=== PATIENT | female | born 1945 | race Caucasian/White ===

== ENCOUNTER → 2017-11-06 | Outpatient (CLI) | payer MEDICARE, OTHER ==
[~2017-11-06] MED LIST: CALC1TAB16 PO; ESTR1 PO; LEVO.05 PO; OCUVTAB4 PO; VAGI10TA VAGINAL; VITA1000 PO; [UNRECOGNIZED DRUG - CODE] EACH EYE
[2017-11-06 14:18] LABS: HEMATOCRIT 41.7 % (35.0-46.0); HEMOGLOBIN 14.1 GM/DL (11.6-15.3); MEAN CELL VOLUME 88.2 FL (80.0-100.0); MEAN CORPUSCULAR HEMOGLOBIN 29.9 PG (27.0-34.0); MEAN CORPUSCULAR HGB CONC 33.9 % (32.0-36.0); MEAN PLATELET VOLUME 8.2 FL (7.0-11.0); PLATELET COUNT 288 TH/MM3 (150-450); RED BLOOD COUNT 4.72 MIL/MM3 (4.00-5.30); RED CELL DISTRIBUTION WIDTH 13.7 % (11.6-17.2); WHITE BLOOD COUNT 6.4 TH/MM3 (4.0-11.0)
[2017-11-06 14:25] LABS: BILIRUBIN, URINE NEG (NEG); BLOOD, URINE NEG (NEG); GLUCOSE,URINE NEG (NEG); KETONE, URINE NEG (NEG); MUCUS URINE FEW /lpf (OCC); NITRITE,URINE NEG (NEG); PH, URINE 5.5 (5.0-8.5); SQUAMOUS EPITHELIAL CELL URINE 2 /hpf (0-5); URINE COLOR YELLOW (YELLW/STRAW); URINE LEUKOCYTE ESTERASE NEG (NEG)
--- NOTE | 2017-11-07 14:43 | EKG ---
Date Performed: 11/06/2017 Time Performed: 13:54:54 PTAGE: 72 years EKG: Sinus rhythm NORMAL ECG NO PREVIOUS TRACING DOCTOR: Nacho Dale Interpretating Date/Time 11/07/2017 14:41:37
--- NOTE | 2017-11-08 15:37 | MH ---
cc: Justin Noble MD DATE OF ADMISSION: 11/06/2017 ADMITTING DIAGNOSIS: Enlarging cyst of vulva. HISTORY OF PRESENT ILLNESS: The patient is a 72-year-old white female, para 1-0-0-1 with an over 1-year history of increasing size of a vulvar cyst, is not admitted for removal. PAST MEDICAL HISTORY/PREVIOUS SURGERY: In 1965, she had sinus polyps, a D and C in 1976, laparoscopic tubal in 1979, D and C in 1989, RUDY-BSO in 1992. ALLERGIES: NONE. MEDICATIONS: Estrace, Vagifem, Synthroid, and vitamins. TRANSFUSIONS: None. OBSTETRICAL HISTORY: One vaginal delivery. SOCIAL HISTORY: Retired teacher. Alcohol, tobacco, and drugs are none. FAMILY HISTORY: Noncontributory. PHYSICAL EXAMINATION: GENERAL: She is a well-nourished, well-developed white female. VITAL SIGNS: Stable. HEENT: Normal. CHEST: Clear. HEART: Regular rate. BREASTS: Symmetrical. ABDOMEN: Benign. PELVIC: The vulva shows a 1.5 cm sebaceous cyst, right vulva, periclitoral. Vagina is normal. Cervix, uterus, adnexa absent. No mass or pain. ASSESSMENT: As above. She is now admitted for a partial vulvectomy, simple. While in the office, the procedure, the risks and benefits and complications including infection, injury, bleeding, recurrent symptoms. Patient would like to proceed. Justin Noble MD JAW/TI , 03:25 PM , 03:36 PM
== END ==
LOC: CPRE 13:29
PROVIDERS: ATTEND Obstetrics & Gynecology
DX: Z01.812 Encounter for preprocedural laboratory examination (principal); Z01.810 Encounter for preprocedural cardiovascular examination; N90.89 Other specified noninflammatory disorders of vulva and perineum
CPT/HCPCS: 36415; 81001; 85027; 93005

== ENCOUNTER → 2017-11-09 | Day surgery (SDC) | payer MEDICARE, OTHER ==
[~2017-11-09] MED LIST changes: +*ONDANSETRON 4 MG VIAL PERIprocedural Use ONLY ONE; +ACETAMINOPHEN 1000 MG/100 ML 100 ML IV SCH; +BACITRACIN TOP OINT 15 GM TUBE ONE; +CHLORHEXIDINE GLUCONATE 2 % 1 PACK (2 CLOTHS) TOPICAL PRN; +DEXAMETHASONE SOD PHOS 4 MG/ML VIAL IV ONE; +DO NOT ADM ANY ANTICOAGULANT DRUGS PRN; +KETOROLAC TROMETHAMINE 30 MG/ML (IVP) VIAL IV PUSH ONE; +LACTATED RINGER'S 1000 ML IV PRN; +LIDOCAINE 1%/EPINEPHrine 1:100,000 SOLN 30 ML VIAL ONE; +LIDOCAINE HCL 1% PF 5 ML SYRINGE OTHER ONE; +METOCLOPRAMIDE HCL 10 MG/2 ML VIAL IV PUSH PRN; +METOPROLOL TARTRATE 25 MG TAB PO PRN; +MIDAZOLAM HCL 2 MG/2 ML VIAL ONE; +ONDANSETRON HCL 4 MG/2 ML VIAL IV ONE; +PROPOFOL 200 MG/20 ML AMP IV ONE; +SODIUM CHLORID 0.9% 500 ML IV PRN; +ceFAZolin 1,000 MG/NS 100 ML IV SCH; +oxyCODONE/ACETAMINOPHEN 5 MG/325 MG TAB PO PRN
--- NOTE | 2017-11-09 08:23 | MP ---
cc: Justin Noble MD DATE OF OPERATION: 11/09/2017 PREOPERATIVE DIAGNOSIS: Enlarging right vulvar nodule. POSTOPERATIVE DIAGNOSIS: Enlarging right vulvar nodule. PROCEDURE: Partial simple right vulvectomy. ANESTHESIA: General LMA and lidocaine 1% plus epinephrine 10 mL. SURGEON: Justin Noble MD ESTIMATED BLOOD LOSS: Less than 5 mL. FLUIDS: 0.5 l crystalloid. OBJECTIVE FINDINGS: Following induction of adequate general LMA anesthesia, patient was prepped and draped dorsal supine position in sterile fashion using a dilute Hibiclens solution. The vulvar nodule was about 1.5 cm just to the right and inferior of the clitoral region. The wound site was outlined with marking pen, injected with 10 mL lidocaine 1% with epinephrine. Using a knife, a 3 cm ellipse was performed, and the Bovie was used to excise out subcutaneous tissue with the nodule intact. Bovie was used for hemostasis, and then the wound was closed with interrupted sutures of 3-0 Vicryl. With good hemostasis, the wound was coated with bacitracin. The patient taken out of stirrups and she was awakened and taken to recovery room in good condition. All counts were correct. MD ALY Romero/SHAUN , 08:01 AM , 08:20 AM
[2017-11-09 10:30] VITALS: BP 160/62; PULSE 62; RESP 14; TEMP 97.5; O2SAT 100
== END | disposition home or self-care (01) ==
LOC: HSDC 05:27
PROVIDERS: ATTEND Obstetrics & Gynecology
DX: N90.89 Other specified noninflammatory disorders of vulva and perineum (principal); N90.7 Vulvar cyst; I10 Essential (primary) hypertension
CPT/HCPCS: 00906; 56620; 88305; 88341; 88342; J0131; J0690; J1100; J1885; J2250; J2405; J7040; J7120

== ENCOUNTER 2017-12-13 05:56 | Emergency (ER) | payer MEDICARE, OTHER ==
[~2017-12-13] VITALS: Ht 157.5 cm; Wt 70.5 kg
[~2017-12-13 05:56] MED LIST changes: -*ONDANSETRON 4 MG VIAL PERIprocedural Use ONLY ONE; -ACETAMINOPHEN 1000 MG/100 ML 100 ML IV SCH; -BACITRACIN TOP OINT 15 GM TUBE ONE; -CHLORHEXIDINE GLUCONATE 2 % 1 PACK (2 CLOTHS) TOPICAL PRN; -DEXAMETHASONE SOD PHOS 4 MG/ML VIAL IV ONE; -DO NOT ADM ANY ANTICOAGULANT DRUGS PRN; -KETOROLAC TROMETHAMINE 30 MG/ML (IVP) VIAL IV PUSH ONE; -LACTATED RINGER'S 1000 ML IV PRN; -LIDOCAINE 1%/EPINEPHrine 1:100,000 SOLN 30 ML VIAL ONE; -LIDOCAINE HCL 1% PF 5 ML SYRINGE OTHER ONE; -METOCLOPRAMIDE HCL 10 MG/2 ML VIAL IV PUSH PRN; -METOPROLOL TARTRATE 25 MG TAB PO PRN; -MIDAZOLAM HCL 2 MG/2 ML VIAL ONE; -ONDANSETRON HCL 4 MG/2 ML VIAL IV ONE; -PROPOFOL 200 MG/20 ML AMP IV ONE; -SODIUM CHLORID 0.9% 500 ML IV PRN; -ceFAZolin 1,000 MG/NS 100 ML IV SCH; -oxyCODONE/ACETAMINOPHEN 5 MG/325 MG TAB PO PRN
[2017-12-13 06:11] VITALS: BP 236/102; PULSE 77; RESP 18; TEMP 98.5; O2SAT 96
[2017-12-13 07:00] VITALS: BP 199/83; PULSE 74; RESP 18; TEMP 98.2; O2SAT 98
--- NOTE | 2017-12-13 07:45 | PD ---
HPI Chief Complaint: Headache Time Seen by Provider: 07:09 Travel History International Travel<30 days: No Contact w/Intl Traveler<30days: No Traveled to known affect area: No History of Present Illness HPI 72 y/o female presents with frontal headache and dizziness and sinus pressure. She notes taking 2 motrin last night with mild relief. She denies specific modifying factors. She states she is not on blood pressure medication and her blood pressure always goes up significantly when she is stressed. She denies any trauma or thunderclap onset. She states she does have issues with vertigo and sinus problems. She denies significant concurrent complaints. Quality is pressure. Severity is moderate. She states she follows regularly with her primary doctor and her pressure is fine there but they have to wait to the end of the visit to document of pressure. PFSH Past Medical History Anxiety: Yes Cancer: No Cardiovascular Problems: No Diabetes: No Endocrine: No Genitourinary: No Hepatitis: No Hiatal Hernia: No Immune Disorder: No Musculoskeletal: No Neurologic: Yes (VERTIGO) Psychiatric: Yes (ANXIETY) Reproductive: Yes (Fibroids) Respiratory: Yes (Sinuses) Thyroid Disease: Yes (Hypothryroidisms) Tetanus Vaccination: Unknown Influenza Vaccination: No ?: Not Past Surgical History Abdominal Surgery: No AICD: No Cardiac Surgery: No Ear Surgery: No Endocrine Surgery: No Eye Surgery: No Genitourinary Surgery: No Gynecologic Surgery: Yes (HYSTERECTOMY) Hysterectomy: Yes Joint Replacement: No Oral Surgery: No Pacemaker: No Thoracic Surgery: No Other Surgery: Yes (vaginal cyst removal) Social History Alcohol Use: Yes (occasionally) Tobacco Use: No Substance Use: No Allergies-Medications (Allergen,Severity, Reaction): Coded Allergies: Sulfa (Sulfonamide Antibiotics) (Verified Allergy, Severe, 12/13/17) WELTS latex (Verified Allergy, Severe, Rash, 12/13/17) iodine (Verified Allergy, Unknown, 12/13/17) Reported Meds & Prescriptions Reported Meds & Active Scripts Active Reported Preservision Areds (Multiple Vitamins W/ Minerals) 1 Tab 2 Tab PO DAILY Vitamin D-1000 (Cholecalciferol) 1,000 Unit Tab 1,000 Units PO DAILY Refresh Optive Sensitive Unit-Dose Opth Drops (Carboxymethylcellulose-Glycerine Opth Drops) 0.5-0.9% Drops 1-2 Drop EACH EYE Q4H PRN Synthroid (Levothyroxine Sodium) 50 Mcg Tab 50 Mcg PO DAILY Estrace (Estradiol) 1 Mg Tab 1 Mg PO DAILY Review of Systems Except as stated in HPI: all other systems reviewed are Neg Physical Exam Narrative GENERAL: 72-year-old female in no apparent distress SKIN: Focused skin assessment warm/dry. HEAD: Atraumatic. Normocephalic. EYES: Pupils equal and round. No scleral icterus. No injection or drainage. ENT: No nasal bleeding or discharge. Mucous membranes pink and moist. NECK: Trachea midline. No JVD. No meningeal signs CARDIOVASCULAR: Regular rate and rhythm. No murmur appreciated. RESPIRATORY: No accessory muscle use. Clear to auscultation. Breath sounds equal bilaterally. GASTROINTESTINAL: Abdomen soft, non-tender, nondistended. MUSCULOSKELETAL: No obvious deformities. No clubbing. No cyanosis. NEUROLOGICAL: Awake and alert. No obvious cranial nerve deficits. Motor grossly within normal limits. Normal speech. Equal grasp bilaterally, 5 out of 5 in all 4 extremities PSYCHIATRIC: Appropriate mood and affect; insight and judgment normal. Data Data Last Documented VS Vital Signs Date Time Temp Pulse Resp B/P (MAP) Pulse Ox O2 Delivery O2 Flow Rate FiO2 12/13/17 10:03 12/13/17 07:00 98.2 74 18 98 Room Air Orders Orders Ct Brain W/O Iv Contrast(Rout) (12/13/17 ) Blood Pressure (12/13/17 07:40) Ketorolac Inj (Toradol Inj) (12/13/17 09:15) Ed Discharge Order (12/13/17 09:13) MDM Medical Decision Making Medical Screen Exam Complete: Yes Emergency Medical Condition: Yes Medical Record Reviewed: Yes (pmh confirmed) Interpretation(s) Last [address] 12/13/17 0000 Signed Impressions: Service Date/Time: December 08:11 - CONCLUSION: No acute disease. Rashard Javier MD Differential Diagnosis Sinusitis, vertigo, intracranial, tension, migraine Narrative Course Will check CT brain and reevaluate. Patient's repeat blood pressure while I was in the room is 205/81 without medication. She is in agreement to plan ct brain no acute, Patient denies any new complaints and states that they are feeling better. Patient happy with care, all questions answered. Patient knows that follow up is incumbent on them and to return to the emergency room immediately if new or worsening symptoms develop. Patient given strict return precautions, vitals reviewed and bp improved, agrees to further workup as an outpatient. Diagnosis Primary Impression: Cephalgia Qualified Codes: R51 - Headache Patient Instructions: General Instructions Additional Instructions: alternate tylenol and motrin, follow with primary this week, keep a blood pressure log, return as needed Med/Other Pt SpecificInfo: No Change to Meds Disposition: 01 DISCHARGE HOME Condition: Stable Shayna Wagner MD Dec 13, 2017 07:45
--- NOTE | 2017-12-13 09:06 | RADRPT ---
EXAM DATE/TIME: 12/13/2017 08:11 [facility] COMPARISON: No previous studies available for comparison. INDICATIONS : Cephalgia, nausea, and dizziness. RADIATION DOSE: 27.85 CTDIvol (mGy) MEDICAL HISTORY : Non-responsive. SURGICAL HISTORY : None. ENCOUNTER: Initial ACUITY: 1 day PAIN SCALE: 5/10 LOCATION: cranial TECHNIQUE: Multiple contiguous axial images were obtained of the head. Using automated exposure control and adj ustment of the mA and/or kV according to patient size, radiation dose was kept as low as reasonably a chievable to obtain optimal diagnostic quality images. DICOM format image data is available electro nically for review and comparison. FINDINGS: CEREBRUM: The ventricles are normal for age. No evidence of midline shift, mass lesion, hemorrhage or acute in farction. No extra-axial fluid collections are seen. POSTERIOR FOSSA: The cerebellum and brainstem are intact. The 4th ventricle is midline. The cerebellopontine angle i s unremarkable. EXTRACRANIAL: The visualized portion of the orbits is intact. SKULL: The calvaria is intact. No evidence of skull fracture. CONCLUSION: No acute disease. Rashard Javier MD on December 13, 2017 at 9:03 Board Certified Radiologist. This report was verified electronically.
[2017-12-13] MEDS ORDERED: KETOROLAC TROMETHAMINE 60 MG/2 ML (IM) VIAL IM ONE (09:15)
== END 2017-12-13 10:06 | disposition home or self-care (01) ==
LOC: NEPC 05:56
DX: R51 Headache (principal); E03.9 Hypothyroidism, unspecified
CPT/HCPCS: 70450; 96372; 99283; J1885